=== PATIENT | male | born 1990 | race Two or more races ===

== ENCOUNTER → 2025-09-08 | Outpatient (CLI) | payer MEDICAID, SELFPAY ==
--- NOTE | 2025-09-08 10:00 | XR_ITS ---
EXAMINATION: Testicular sonography complete TECHNIQUE: Grayscale sonographic images testes, assessment arterial inflow and venous outflow Doppler spectral analysis color flow analysis Date and time: September 08, 2025, 1001 hours INDICATIONS: Diagnosis left testicular mass on outside examination in 3 months ago, testicular swelling and pain 3 months FINDINGS: Right testis 4.7 cm epididymis 18 mm Appendix testis 9 x 9 mm Right epididymal cyst 6 x 5 mm Posterior to the right scrotal sac is free fluid 3.1 x 1.2 x 1.9 cm Mild hydrocele Arterial flow to the testicle. No testicular mass Left testis 4.7 cm epididymis 1.1 cm Arterial flow to the testicle. Solid mass in the anterior medial testicle with ill-defined margins 17 x 12 x 21 mm IMPRESSION: Solid left testicular mass,, most consistent with neoplastic mass, recommend urology consultation
== END | disposition home or self-care (01) ==
PROVIDERS: PCP Physician Assistant; Referring Provider Urology; Visit Provider Urology
DX: N50.89 Other specified disorders of the male genital organs (principal)
CPT/HCPCS: 76870